=== PATIENT | female | born 1990 | race Two or more races ===

== ENCOUNTER 2017-04-03 21:11 | Emergency (ER) | payer SELFPAY ==
[~2017-04-03] VITALS: Ht 165.1 cm; Wt 70.3 kg
[2017-04-03 21:20] VITALS: BP 117/69
[2017-04-03 22:28] LABS: Urine Bilirubin Negative (Negative); Urine Color Yellow (Yellow); Urine Glucose Normal (Normal); Urine Mucus FEW (None Seen); Urine Nitrite Negative (Negative); Urine RBC 821 /hpf (0 - 4); Urine Squamous Epithelial Cell FEW /hpf (<5); Urine Urobilinogen Normal (Negative)
[2017-04-03 22:40] LABS: Urine Blood 2+ /uL (Negative); Urine Ketone 1+ (Negative)
== END 2017-04-04 02:35 | disposition left against medical advice (07) ==
LOC: ER 21:15
DX: R56.9 Unspecified convulsions (principal); Z53.21 Procedure and treatment not carried out due to patient leaving prior to being seen by health care provider
CPT/HCPCS: 81001; 81025